=== PATIENT | female | born 1985 | race Caucasian/White ===

== ENCOUNTER 2019-09-27 10:43 | Inpatient (IN) | payer SELFPAY ==
[2019-09-27] MEDS ORDERED: Sodium Chloride 0.9% 10 ML Syringe FLUSH PRN (10:58)
[2019-09-27] MEDS: Lactated Ringers 1,000 ML IV SCH ×2 (11:05→11:20)
[2019-09-27] MEDS ORDERED: Bupivacaine 0.5% 30 ML SDV ONE (11:12)
[2019-09-27] MEDS ORDERED: Ondansetron 4 MG/2 ML SDV IVPUSH PRN (11:22)
[2019-09-27] MEDS ORDERED: Metoclopramide 10 MG/2 ML SDV IVPUSH ONE (11:22)
[2019-09-27] MEDS ORDERED: ceFAZolin 2 GM in Premix Bag 1 BAG IV ONE (11:22)
[2019-09-27] MEDS ORDERED: Citric Acid/Sodium Citrate Solution 30 ML Cup PO ONE (11:22)
[2019-09-27] MEDS ORDERED: Propofol 200 MG/20 ML SDV ONE (11:24)
[2019-09-27] MEDS ORDERED: Ketamine 500 mg/10 ML MDV ONE (11:25)
[2019-09-27] MEDS ORDERED: fentaNYL 100 MCG/2 ML SDV ONE (11:25)
[2019-09-27] MEDS ORDERED: ceFAZolin 1 GM Vial ONE (11:28)
[2019-09-27] MEDS ORDERED: Oxytocin 10 Units/1 ML SDV ONE ×2 (11:28→12:10)
[2019-09-27] MEDS ORDERED: Oxytocin/Lactated Ringers 20 UNIT/1,000 ML BAG IV SCH (11:30)
--- NOTE | 2019-09-27 11:34 | PCM.LDHP ---
L&D History of Present Illness - General Date of Service: 09/27/19 Admit Problem/Dx: Patient Status Order with Admit Dx/Problem 09/27/19 10:58 Patient Status [ADT] Routine Admission Diagnosis/Problem Admission Diagnosis/Problem Pain Source of Information: Patient History Limitations: Reports: No Limitations - History of Present Illness Introduction:: 33 y/o BIA by 14 week USG 11/27/2019. Presented to L&D c/o severe constant abdominal pain onset just after smoking methamphetamine. No vaginal bleeding. Two prior sections. Blood type A positive. Hgb now 7.8 and platelets [id number]. Bedside usg confirmed no heart tones. Abruptio placenta suspected by USG as well. Cervix closed, long, firm, posterior. BP 83/53 and repeat 80-90/50s. EGA 31w2d. IV started. H/O hypothyroidism on levothyroxine Allergy to sulfa Hgb in May 2019 10.6 platelets [id number]. H/O PTDS, depresion, asthma, anxiety and Met use H/O knee surgery and ankle Cholecystectomy CS x2 Improves with: Reports: None Worsens with: Reports: None Associated Symptoms: Reports: N - Related Data Allergies/Adverse Reactions: Allergies Allergy/AdvReac Type Severity Reaction Status Date / Time Sulfa (Sulfonamide Allergy Rash Verified 09/27/19 11:22 Antibiotics) H&P Review of Systems - Review of Systems: Review Of Systems: See Below General: Reports: Other (low BP) HEENT: Reports: No Symptoms Pulmonary: Reports: No Symptoms Cardiovascular: Reports: No Symptoms Gastrointestinal: Reports: Abdominal Pain (abruptio by usg and no heart tones on usg) Genitourinary: Reports: No Symptoms Musculoskeletal: Reports: No Symptoms Skin: Reports: No Symptoms Psychiatric: Reports: No Symptoms Neurological: Reports: No Symptoms Hematologic/Lymphatic: Reports: No Symptoms Immunologic: Reports: No Symptoms L&D Exam - Exam Exam: See Below - OB Specific Fundal Height In cm: 32 Movement: Not Appreciated Heart Tones: Not Hand Heart Tones per Min: 0 - Lin Score Lin Score Cervix Position: Posterior Lin Score Consistency: Firm Lin Score Effacement: 0-30% Lin Score Dilation: Closed Lin Score Infant's Station: -3 Lin Score Total: 0 - Exam General: Severe Distress, Lethargic HEENT: Conjunctiva Clear, Mucosa Moist & [place] Neck: Supple, Trachea Midline Lungs: Clear to Auscultation, Normal Respiratory Effort Cardiovascular: Regular Rate, Regular Rhythm GI/Abdominal Exam: Normal Bowel Sounds, Tender (consistant with abruptio placenta) Extremities: Normal Inspection, Normal Range of Motion, Non-Tender, No Pedal Edema, Normal Capillary Refill Skin: Dry, Intact, Cool, Moist - Problem List (1) 31 weeks gestation of SNOMED Code(s): 09735072 ICD Code: Z3A.31 - 31 WEEKS GESTATION OF Status: Acute Current Visit: Yes (2) Abruptio placenta SNOMED Code(s): 176044736 ICD Code: O45.90 - PREMATURE SEPARATION OF PLACENTA, UNSP, UNSP TRIMESTER Status: Acute Current Visit: Yes (3) Methamphetamine use SNOMED Code(s): 528547572 ICD Code: F15.10 - OTHER STIMULANT ABUSE, UNCOMPLICATED Status: Acute Current Visit: Yes (4) IUFD at 20 weeks or more of gestation SNOMED Code(s): 287134035, 807698121 ICD Code: O36.4XX0 - MATERNAL CARE FOR INTRAUTERINE , NOT APPLICABLE OR UNSP Status: Acute Current Visit: Yes Problem List Initiated/Reviewed/Updated: No Orders Last 24hrs: Active Orders 24 hr Category Date Time Status Patient Status [ADT] Routine ADT 09/27/19 10:58 Active Non Stress Test [RC] PER UNIT ROUTINE Care 09/27/19 10:58 Active Peripheral IV Care [RC] . DIRECTED Care 09/27/19 10:59 Active Vital Signs [RC] PER UNIT ROUTINE Care 09/27/19 10:58 Active OB Ltd 1 or More Fetus [US] Stat Exams 09/27/19 11:00 Ordered CBC WITH AUTO DIFF [HEME] Stat Lab 09/27/19 11:01 Ordered HEPATITIS B SURFACE AG [CHEM] Stat Lab 09/27/19 11:01 Ordered HIV RAPID SCREEN RLFX COMFIRM [CHEM] Urgent Lab 09/27/19 11:01 Ordered RAPID PLASMA REAGIN,RPR [CHEM] Stat Lab 09/27/19 11:01 Ordered RED BLOOD CELLS LP [BBK] Routine Lab 09/27/19 11:01 Ordered RUBELLA ANTIBODY IGG [CHEM] Stat Lab 09/27/19 11:01 Ordered TYPE AND SCREEN [BBK] Stat Lab 09/27/19 11:01 Ordered Sodium Chloride 0.9% [Saline Flush] Med 09/27/19 10:58 Active 10 ml FLUSH ASDIRECTED PRN OB Panel [OM.PC] Stat Oth 09/27/19 11:01 Ordered Peripheral IV Insertion Adult [OM.PC] Urgent Oth 09/27/19 10:58 Ordered Resuscitation Status Routine Resus Stat 09/27/19 10:58 Ordered Medication Orders Sodium Chloride (Saline Flush) 10 ml FLUSH ASDIRECTED PRN PRN Reason: Keep Vein Open Assessment/Plan Comment:: plan delivery
[2019-09-27] MEDS ORDERED: Succinylcholine/Sod PF 100 MG/5 ML SYRINGE IV ONE (11:40)
[2019-09-27] MEDS ORDERED: ePHEDrine Sulfate/0.9% NaCl/Pf 25 MG/5 ML SYRINGE IV ONE ×2 (11:53→11:56)
--- NOTE | 2019-09-27 11:55 | US ---
Limited obstetrical ultrasound: Multiple real-time images were obtained transabdominally. Comparison: No previous study. Mixed echogenic abnormality noted in a retroplacental location which is felt compatible with abruption with blood clot. Fetus is cephalic in presentation. KARLIE is 7. 1 2 centimeter. No heart activity seen within the fetus during 1 minute observation. Impression: 1. Findings compatible with placental abruption with retroplacental blood clot. 2. Cephalic presentation of fetus. No heart activity is seen within the fetus on 1 minute observation. Note: I have a note stating patient taken immediately to surgery per Dr. Melgar Diagnostic code #5 This report was dictated in MDT
[2019-09-27] MEDS ORDERED: Midazolam 1 MG/ML 2 ML SDV ONE (12:05)
[2019-09-27] MEDS ORDERED: Dexamethasone 4 MG/ML SDV ONE (12:07)
[2019-09-27] MEDS ORDERED: Ondansetron 4 MG/2 ML SDV ONE (12:07)
[2019-09-27] MEDS ORDERED: HYDROmorphone 0.5 MG/0.5 ML Syringe ONE ×2 (12:09→12:24)
[2019-09-27] MEDS ORDERED: Lactated Ringers 1,000 ML ONE ×2 (12:23)
[2019-09-27] MEDS ORDERED: Sodium Chloride 0.9% 1,000 ML ONE (12:23)
[2019-09-27] MEDS ORDERED: Methylergonovine 0.2 MG/1 ML Amp ONE (12:44)
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
[2019-09-27] MEDS ORDERED: HYDROmorphone 0.5 MG/0.5 ML Syringe IVPUSH PRN (12:50)
[2019-09-27] MEDS ORDERED: fentaNYL 100 MCG/2 ML SDV IVPUSH PRN (12:50)
--- NOTE | 2019-09-27 12:53 | PCM.PREANE ---
Preanesthetic Assessment - Procedure Proposed Procedure: Emergency C Section - Anesthesia/Transfusion/Family Hx Anesthesia History: Prior Anesthesia Without Reaction Family History of Anesthesia Reaction: No - Review of Systems General: Weakness Pulmonary: Other (Smoker 2 ppd) Cardiovascular: Lightheadedness Gastrointestinal: Abdominal Pain (Severe) Neurological: No Symptoms Other: Reports: None (Anemia, low iron, methamphetamine use this morning. ), Thyroid Problems - Physical Assessment NPO Status Date: 09/27/19 NPO Status Time: 00:30 Vital Signs: Last Vital Signs Temp 35.7 C L 09/27/19 12:49 Pulse 100 09/27/19 12:49 Resp 18 09/27/19 12:49 BP 111/69 09/27/19 12:49 Pulse Ox 100 09/27/19 12:49 ASA Class: 3E Mental Status: Alert & Oriented x3 Airway Class: Mallampati = 2 Dentition: Reports: Normal Dentition Thyro-Mental Finger Breadths: 3 Mouth Opening Finger Breadths: 3 ROM/Head Extension: Full Lungs: Clear to Auscultation, Normal Respiratory Effort Cardiovascular: Regular Rate, Regular Rhythm - Lab Values: Laboratory Last Values WBC 12.74 K/mm3 (3.98-10.04) H 09/27/19 11:20 RBC 2.48 M/mm3 (3.98-5.22) L 09/27/19 11:20 Hgb 7.8 gm/dl (11.2-15.7) L 09/27/19 11:20 Hct 24.3 % (34.1-44.9) L 09/27/19 11:20 MCV 98.0 fl (79.4-94.8) H 09/27/19 11:20 MCH 31.5 pg (25.6-32.2) 09/27/19 11:20 MCHC 32.1 g/dl (32.2-35.5) L 09/27/19 11:20 RDW Std Deviation 42.7 fL (36.4-46.3) 09/27/19 11:20 Plt Count 239 K/mm3 (182-369) 09/27/19 11:20 MPV 8.4 fl (9.4-12.3) L 09/27/19 11:20 Neut % (Auto) 75.3 % (34.0-71.1) H 09/27/19 11:20 Lymph % (Auto) 14.7 % (19.3-51.7) L 09/27/19 11:20 Ida % (Auto) 6.8 % (4.7-12.5) 09/27/19 11:20 Eos % (Auto) 2.2 (0.7-5.8) 09/27/19 11:20 Baso % (Auto) 0.2 % (0.1-1.2) 09/27/19 11:20 Neut # (Auto) 9.60 K/mm3 (1.56-6.13) H 09/27/19 11:20 Lymph # (Auto) 1.87 K/mm3 (1.18-3.74) 09/27/19 11:20 Ida # (Auto) 0.86 K/mm3 (0.24-0.36) H 09/27/19 11:20 Eos # (Auto) 0.28 K/mm3 (0.04-0.36) 09/27/19 11:20 Baso # (Auto) 0.03 K/mm3 (0.01-0.08) 09/27/19 11:20 Manual Slide Review Abnormal smear 09/27/19 11:20 Urine Color Yellow (Yellow) 09/27/19 11:29 Urine Appearance Slt cloudy (Clear) H 09/27/19 11:29 Urine pH 6.5 (5.0-8.0) 09/27/19 11:29 Ur Specific [place] 1.020 (1.005-1.030) 09/27/19 11:29 Urine Protein 1+ (Negative) H 09/27/19 11:29 Urine Glucose (UA) Negative (Negative) 09/27/19 11:29 Urine Ketones Negative (Negative) 09/27/19 11:29 Urine Occult Blood Trace-intact (Negative) H 09/27/19 11:29 Urine Nitrite Negative (Negative) 09/27/19 11:29 Urine Bilirubin Negative (Negative) 09/27/19 11:29 Urine Urobilinogen 0.2 (0.2-1.0) 09/27/19 11:29 Ur Leukocyte Esterase 1+ (Negative) H 09/27/19 11:29 Urine Opiates Screen Negative (SXHKEO=243) 09/27/19 11:29 Ur Buprenorphine Scrn Negative (CUTOFF=10) 09/27/19 11:29 Ur Oxycodone Screen Negative (AGM0LG=219) 09/27/19 11:29 Urine Methadone Screen Negative (JVPPGT=484) 09/27/19 11:29 Ur Propoxyphene Screen Negative (PNXMRJ=243) 09/27/19 11:29 Ur Barbiturates Screen Negative (JKPEVL=098) 09/27/19 11:29 Ur Tricyclics Screen Negative (GFBRYX=564) 09/27/19 11:29 Ur Phencyclidine Scrn Negative (CUTOFF=25) 09/27/19 11:29 Ur Amphetamine Screen Presumptive positive (XDFLKZ=847) H 09/27/19 11:29 U Methamphetamines Scrn Presumptive positive (UIBQHD=511) H 09/27/19 11:29 U Benzodiazepines Scrn Negative (MWPZSV=494) 09/27/19 11:29 U Cocaine Metab Screen Negative (HPHYBR=946) 09/27/19 11: U Marijuana (THC) Screen Negative (CUTOFF=50) 09/27/19 11:29 HIV-1 Ab Rapid Screen Negative (NEGATIVE) 09/27/19 11:20 Blood Type A POSITIVE 09/27/19 11:20 Gel Antibody Screen Negative 09/27/19 11:20 Crossmatch See Detail 09/27/19 11:20 - Allergies Allergies/Adverse Reactions: Allergies Allergy/AdvReac Type Severity Reaction Status Date / Time Sulfa (Sulfonamide Allergy Rash Verified 09/27/19 11:22 Antibiotics) - Blood Blood Available: Yes Product(s) Available: PRBC (Type and Cross ordered per Dr. Melgar) - Anesthesia Plan Pre-Op Medication Ordered: Other (Metoclopramide) - Acknowledgements Anesthesia Type Planned: General Anesthesia (RSI ) Pt an Appropriate Candidate for the Planned Anesthesia: Yes Alternatives and Risks of Anesthesia Discussed w Pt/Guardian: Yes Pt/Guardian Understands and Agrees with Anesthesia Plan: Yes PreAnesthesia Questionnaire - CURRENT (IN HOUSE) MEDS Current Meds: Current Medications Lactated Ringer's (Ringers, Lactated) 1,000 mls @ 125 mls/hr IV ASDIRECTED ARTHUR Oxytocin/Lactated Ringer's (Pitocin In Lr 20 Units/1,000 Ml) 20 unit in 1,000 mls @ 500 mls/hr IV TITRATE ARTHUR; Protocol Ondansetron HCl (Zofran) 4 mg IVPUSH Q4H PRN PRN Reason: Nausea/Vomiting Sodium Chloride (Saline Flush) 10 ml FLUSH ASDIRECTED PRN PRN Reason: Keep Vein Open Discontinued Medications Bupivacaine HCl (Marcaine 0.5%) Confirm Administered Dose 30 ml .ROUTE .[facility]-MED ONE Stop: 09/27/19 11:13 Cefazolin Sodium (Ancef) Confirm Administered Dose 2 gm .ROUTE .[facility]-MED ONE Stop: 09/27/19 11:29 Citric Acid/Sodium Citrate (Bicitra Solution) 30 ml PO ONETIME ONE Stop: 09/27/19 11:23 Dexamethasone (Dexamethasone) Confirm Administered Dose 4 mg .ROUTE .[facility] ONE Stop: 09/27/19 12:08 Ephedrine Sulfate (Ephedrine 25 Mg/5 Ml Syringe) Confirm Administered Dose 50 mg IV .ST-MED ONE Stop: 09/27/19 11:54 Ephedrine Sulfate (Ephedrine 25 Mg/5 Ml Syringe) Confirm Administered Dose 25 mg IV .[facility] ONE Stop: 09/27/19 11:57 Fentanyl (Sublimaze) Confirm Administered Dose 100 mcg .ROUTE .[facility]-MED ONE Stop: 09/27/19 11:26 Glycopyrrolate () Confirm Administered Dose 1 mg .ROUTE .[facility] ONE Stop: 09/27/19 11:56 Hydromorphone HCl (Dilaudid) Confirm Administered Dose 0.5 mg .ROUTE .[facility]-MED ONE Stop: 09/27/19 12:10 Hydromorphone HCl (Dilaudid) Confirm Administered Dose 0.5 mg .ROUTE .[facility]-MED ONE Stop: 09/27/19 12:25 Cefazolin Sodium/Dextrose 2 gm (/ Premix) 50 mls @ 100 mls/hr IV ONETIME ONE Stop: 09/27/19 11:51 Lactated Ringer's (Ringers, Lactated) Confirm Administered Dose 1,000 mls @ as directed .ROUTE .[facility]-MED ONE Stop: 09/27/19 12:24 Lactated Ringer's (Ringers, Lactated) Confirm Administered Dose 1,000 mls @ as directed .ROUTE .[facility]-MED ONE Stop: 09/27/19 12:24 Sodium Chloride (Normal Saline) Confirm Administered Dose 1,000 mls @ as directed .ROUTE .[facility]-MED ONE Stop: 09/27/19 12:24 Ketamine HCl (Ketalar) Confirm Administered Dose 500 mg .ROUTE .STK-MED ONE Stop: 09/27/19 11:26 Methylergonovine Maleate (Methergine) Confirm Administered Dose 0.2 mg .ROUTE .STK-MED ONE Stop: 09/27/19 12:45 Metoclopramide HCl (Reglan) 10 mg IVPUSH ONETIME ONE Stop: 09/27/19 11:23 Midazolam HCl (Versed 1 Mg/Ml) Confirm Administered Dose 2 mg .ROUTE .STK-MED ONE Stop: 09/27/19 12:06 Miscellaneous Medication (Phenylephrine 1 Mg/10 Ml-Ns) Confirm Administered Dose 1 mg IV .ST-MED ONE Stop: 09/27/19 11:58 Ondansetron HCl (Zofran) Confirm Administered Dose 4 mg .ROUTE .STK-MED ONE Stop: 09/27/19 12:08 Oxytocin (Pitocin) Confirm Administered Dose 20 unit .ROUTE .STK-MED ONE Stop: 09/27/19 11:29 Oxytocin (Pitocin) Confirm Administered Dose 20 unit .ROUTE .STK-MED ONE Stop: 09/27/19 12:11 Propofol (Diprivan 20 Ml) Confirm Administered Dose 200 mg .ROUTE .STK-MED ONE Stop: 09/27/19 11:25
--- NOTE | 2019-09-27 13:55 | PCM.POSTAN ---
POST ANESTHESIA ASSESSMENT - MENTAL STATUS Mental Status: Somnolent - VITAL SIGNS Vital Signs: Post operative Vitals 104/41, HR 100, SpO2 97% RR 16 T96.8F Last Vital Signs Temp 96.8 F L 09/27/19 13:44 Pulse 97 09/27/19 13:44 Resp 15 09/27/19 13:44 BP 121/88 09/27/19 13:44 Pulse Ox 95 09/27/19 13:44 - RESPIRATORY Respiratory Status: Respiratory Rate WNL, Airway Patent, O2 Saturation Stable, Supplemental Oxygen - CARDIOVASCULAR CV Status: Pulse Rate WNL, Blood Pressure Stable, Elevated Pulse Rate - GASTROINTESTINAL GI Status: No Symptoms - PAIN Pain Score: 0 - POST OP HYDRATION Hydration Status: Adequate & Stable
[2019-09-27] MEDS ORDERED: Acetaminophen 325 MG Tab PO PRN (14:44)
[2019-09-27] MEDS ORDERED: diphenhydrAMINE 50 MG/ML SDV IVPUSH PRN (14:44)
[2019-09-27] MEDS ORDERED: ePHEDrine 50 MG/ML SDV IVPUSH PRN (14:44)
[2019-09-27] MEDS ORDERED: Dextrose 5%-Lactated Ringers 1,000 ML IV SCH (14:44)
[2019-09-27] MEDS ORDERED: Acetaminophen/oxyCODONE 325-5 MG Tab PO PRN (14:44)
[2019-09-27] MEDS ORDERED: Ondansetron 4 MG Tab.DIS PO PRN (14:44)
[2019-09-27] MEDS ORDERED: Naloxone 0.4 MG/ML SDV IVPUSH PRN (14:44)
[2019-09-27] MEDS: Docusate Sodium 100 MG Cap PO PRN (15:13)
[2019-09-27] MEDS: Ibuprofen 600 MG Tab PO PRN ×2 (15:13→21:46)
[2019-09-27] MEDS: Simethicone 80 MG Tab.Chew PO SCH ×3 (15:13→20:30)
[2019-09-27] MEDS: Acetaminophen/oxyCODONE 325-5 MG Tab PO PRN ×3 (15:14→23:30)
--- NOTE | 2019-09-27 19:45 | PCM.SN.2 ---
- Free Text/Narrative Note: Patient is awake alert. Discussed findings at surgery with patient's and father of baby. No heavy vaginal bleeding no leg cramping. Chest is clear. See hemoglobin/hematocrit/platelets. Will withhold additional transfusion for now as patient is stable. Has been adequate. She understands she may be in the hospital until at least Friday morning.
[2019-09-27] MEDS ORDERED: Nicotine Polacrilex 2 MG Gum CHEW PRN (20:27)
[2019-09-28] MEDS ORDERED: Lactated Ringers 1,000 ML IV ONE (01:06)
[2019-09-28] MEDS: Acetaminophen/oxyCODONE 325-5 MG Tab PO PRN ×3 (05:31→16:41)
[2019-09-28] MEDS ORDERED: Sodium Chloride 0.9% 250 ML IV SCH (06:45)
--- NOTE | 2019-09-28 06:52 | PCM.SN.2 ---
- Free Text/Narrative Note: Image globe and 6.1 this morning. Patient has symptomatic unable to stand without feeling like she is going to pass out she is "too tired" to stand and get out of bed. Will transfuse with 2 units of packed red blood cells. Hemoglobin to be obtained 4 hours after last unit infused. An CBC in the morning. Incision normal uterus is involuting normally no leg cramping.
--- NOTE | 2019-09-28 09:00 | PCM48HPAN ---
Post Anesthesia Note - EVALUATION WITHIN 48HRS OF ANESTHETIC Vital Signs in Normal Range: Yes Patient Participated in Evaluation: Yes Respiratory Function Stable: Yes Airway Patent: Yes Cardiovascular Function Stable: Yes Hydration Status Stable: Yes Pain Control Satisfactory: Yes Nausea and Vomiting Control Satisfactory: Yes Mental Status Recovered: Yes Vital Signs: Last Vital Signs Temp 36.7 C 09/28/19 07:26 Pulse 63 09/28/19 07:49 Resp 16 09/28/19 07:26 BP 97/64 09/28/19 07:27 Pulse Ox 96 09/28/19 07:49
[2019-09-28] MEDS: Simethicone 80 MG Tab.Chew PO SCH ×4 (10:09→23:12)
[2019-09-28] MEDS: Ibuprofen 600 MG Tab PO PRN ×2 (10:09→20:41)
[2019-09-29] MEDS: Docusate Sodium 100 MG Cap PO PRN ×2 (05:53→08:14)
[2019-09-29] MEDS: Acetaminophen/oxyCODONE 325-5 MG Tab PO PRN ×2 (05:53→11:15)
[2019-09-29] MEDS: Simethicone 80 MG Tab.Chew PO SCH (08:14)
[2019-09-29] MEDS: Ibuprofen 600 MG Tab PO PRN (08:14)
--- NOTE | 2019-09-29 11:01 | PCM.DCSUM1 ---
Discharge Summary - Hospital Course Free Text/Narrative:: [facility] Post-Op/Procedure Note Patient Name: DANIELLE HARGROVE Date of : 87 Patient Status: Inpatient Attending Provider: Randal Melgar Date: 09/27/19 12:39 Initialization Date: 09/27/19 12:39 - General Post-Op/Procedure Note Date of Surgery/Procedure: 09/27/19 Operative Procedure(s): section repeat Pre Op Diagnosis: 1 weeks estimated gestational age, abruptio placentae, history of methamphetamine use, anemia, intrauterine demise, section x2 (previous) Post-Op Diagnosis: Same Anesthesia Technique: General ET Tube Primary Surgeon: Randal Melgar Secondary Surgeon: Misha Flores Anesthesia Provider: Cody Eaton Die Sinker: Justice Estrella (PAS) Die Sinker: Eveline Moses (2nd CASKET ASSEMBLER METAL) Reason Die Sinker Was Necessary: Since the procedure, retraction, cyst and surgery his comorbidity and mortality Role of Die Sinker: Since the procedure, retraction, cyst and surgery his comorbidity and mortality Fluid Replacement, Intraop: 4,000 Output, Urine Amount: 5 EBL in mLs: 2,200 (incl 1500 ml abruptio) Drain/Tube Comments:: romeo Complications: None Condition: Fair Free Text/Narrative:: Patient was transported to the operating room from labor and delivery. Laced under general anesthesia with regular intubation. Prepared and draped in a sterile fashion. CDs in place and functioning prior to surgery. Ancef 2 g given intravenously prior to surgery. Sees ultrasound had shown no heart tones thus intrauterine demise, abruptio placenta also demonstrated on ultrasound) timeout was performed confirming name date of and procedure section. Prepared and draped in a sterile fashion using iodine prep. Pfannenstiel incision was made and carried sharp section to and through the anterior fascia the peritoneal cavity was entered without difficulty bladder flap created pushed caudad in a low segment transverse section was performed (2 prior sections) amniotic fluid was blood-tinged with meconium and intrauterine demise my goal delivered at 1151 hrs. on Friday , 09/27/2019. Complete placental abruption cord blood was collected from three- vessel cord. Placenta was sent to pathology. Cavity inspected and sponge and needle pack instrument count correct x1 on closure of the uterus. Uterus was closed in 2 layers running locking suture of 0 Monocryl followed by a horizontal modified Lembert imbricating suture for the second layer. 2 additional interrupted [id number] sutures applied at the midline inferior portion for hemostasis. Seal added for hemostasis to this area at the middle of the incision. Ovaries appeared normal. No signs of Couvelaire uterus. Sponge and needle pack instrument and not correct x2 and closure the abdominal cavity. The abdominal cavity was closed with #1 PDS running suture. Skin was closed with 3-0 Monocryl subcuticular suture on a Jossue needle Dermabond Preneo applied. Clean from the vagina at the end of procedure. As of the amount of blood loss estimated at 2200 mL including the 1500 mL retroplacental blood clot estimation 2 units of O- blood were transfused and 1 additional unit of a positive matched blood ordered as well as 1 unit of fresh frozen plasma. CBC within be ordered 4 hours after the infusion of the fresh frozen plasma. And had some bogginess to the uterus in postanesthesia care unit and ordered Methergine 0.2 IM. demise weighed 2000 g 4 pounds 7 ounces as expected 0/0 [facility] DANIELLE HARGROVE Female : 1985 [facility]# [id number] 09/29/19 08:50 - Social Work Note by Beverly Lui Acct Num: [id number] : 1985 Patient Age: 33 Support visit; Mtg with pt and her significant other, support provided. Discussed treatment options at [facility] [place] or the human service center [facility] depending on where they will be at. Pt was open to considering this option. Pt is hoping to be able to return home today. Support provided. Initialized on 09/29/19 08:50 - END OF NOTE HPI Initial Comments: [facility] Post-Op/Procedure Note Patient Name: DANIELLE HARGROVE Date of : 87 Patient Status: Inpatient Attending Provider: Randal Melgar Date: 09/27/19 12:39 Initialization Date: 09/27/19 12:39 - General Post-Op/Procedure Note Date of Surgery/Procedure: 09/27/19 Operative Procedure(s): section repeat Pre Op Diagnosis: 1 weeks estimated gestational age, abruptio placentae, history of methamphetamine use, anemia, intrauterine demise, section x2 (previous) Post-Op Diagnosis: Same Anesthesia Technique: General ET Tube Primary Surgeon: Randal Melgar Secondary Surgeon: Misha Flores Anesthesia Provider: Cody Eaton Die Sinker: Justice Estrella (PAS) Die Sinker: Eveline Moses (2nd CASKET ASSEMBLER MET[employer]) Reason Die Sinker Was Necessary: Since the procedure, retraction, cyst and surgery his comorbidity and mortality Role of Die Sinker: Since the procedure, retraction, cyst and surgery his comorbidity and mortality Fluid Replacement, Intraop: 4,000 Output, Urine Amount: 5 EBL in mLs: 2,200 (incl 1500 ml abruptio) Drain/Tube Comments:: romeo Complications: None Condition: Fair Free Text/Narrative:: Patient was transported to the operating room from labor and delivery. Laced under general anesthesia with regular intubation. Prepared and draped in a sterile fashion. CDs in place and functioning prior to surgery. Ancef 2 g given intravenously prior to surgery. Sees ultrasound had shown no heart tones thus intrauterine demise, abruptio placenta also demonstrated on ultrasound) timeout was performed confirming name date of and procedure section. Prepared and draped in a sterile fashion using iodine prep. Pfannenstiel incision was made and carried sharp section to and through the anterior fascia the peritoneal cavity was entered without difficulty bladder flap created pushed caudad in a low segment transverse section was performed (2 prior sections) amniotic fluid was blood-tinged with meconium and intrauterine demise my goal delivered at 1151 hrs. on Friday , 09/27/2019. Complete placental abruption cord blood was collected from three- vessel cord. Placenta was sent to pathology. Cavity inspected and sponge and needle pack instrument count correct x1 on closure of the uterus. Uterus was closed in 2 layers running locking suture of 0 Monocryl followed by a horizontal modified Lembert imbricating suture for the second layer. 2 additional interrupted [id number] sutures applied at the midline inferior portion for hemostasis. Seal added for hemostasis to this area at the middle of the incision. Ovaries appeared normal. No signs of Couvelaire uterus. Sponge and needle pack instrument and not correct x2 and closure the abdominal cavity. The abdominal cavity was closed with #1 PDS running suture. Skin was closed with 3-0 Monocryl subcuticular suture on a Jossue needle Dermabond Preneo applied. Clean from the vagina at the end of procedure. As of the amount of blood loss estimated at 2200 mL including the 1500 mL retroplacental blood clot estimation 2 units of O- blood were transfused and 1 additional unit of a positive matched blood ordered as well as 1 unit of fresh frozen plasma. CBC within be ordered 4 hours after the infusion of the fresh frozen plasma. And had some bogginess to the uterus in postanesthesia care unit and ordered Methergine 0.2 IM. demise weighed 2000 g 4 pounds 7 ounces as expected 0/0 [facility] DANIELLE HARGROVE Female : 1985 [facility]# [id number] 09/29/19 08:50 - Social Work Note by Beverly Lui Acct Num: [id number] : 1985 Patient Age: 33 Support visit; Mtg with pt and her significant other, support provided. Discussed treatment options at [facility] [place] or the human service center in [place] depending on where they will be at. Pt was open to considering this option. Pt is hoping to be able to return home today. Support provided. Initialized on 09/29/19 08:50 - END OF NOTE Brief History: [facility] . Post-Op/Procedure Note. Patient Name: DANIELLE HARGROVEical Record Number: [id number]. Date of : 87Patient Status: Inpatient. Attending Provider: Randal Melgar Number: [id number]. Date: 09/27/19 12:39Initialization Date: 09/12 12:39. - General Post-Op/Procedure Note. Date of Surgery/Procedure: 09/12. Operative Procedure(s): section repeat. Pre Op Diagnosis: 1 weeks estimated gestational age, abruptio placentae, history of methamphetamine use, anemia, intrauterine demise, section x2 (previous). Post- Op Diagnosis: Same. Anesthesia Technique: General ET Tube. Primary Surgeon: Randal Melgar. Secondary Surgeon: Misha Flores. Anesthesia Provider: Cody Eaton. Die Sinker: Justice Estrella (PAS). Die Sinker: Eveline Moses (2nd CASKET ASSEMBLER METAL). Reason Die Sinker Was Necessary: Since the procedure, retraction, cyst and surgery his comorbidity and mortality. Role of Die Sinker: Since the procedure, retraction, cyst and surgery his comorbidity and mortality. Fluid Replacement, Intraop: 4,000. Output, Urine Amount: 5. EBL in mLs: 2,200 (incl 1500 ml abruptio). Drain/Tube Comments:: romeo. Complications: None. Condition: Fair. Free Text/Narrative:: Patient was transported to the operating room from labor and delivery. Laced under general anesthesia with regular intubation. Prepared and draped in a sterile fashion. CDs in place and functioning prior to surgery. Ancef 2 g given intravenously prior to surgery. Sees ultrasound had shown no heart tones thus intrauterine demise, abruptio placenta also demonstrated on ultrasound) timeout was performed confirming name date of and procedure section. Prepared and draped in a sterile fashion using iodine prep. Pfannenstiel incision was made and carried sharp section to and through the anterior fascia the peritoneal cavity was entered without difficulty bladder flap created pushed caudad in a low segment transverse section was performed (2 prior sections) amniotic fluid was blood-tinged with meconium and intrauterine demise my goal delivered at 1151 hrs. on Friday , 09/27/2019. Complete placental abruption cord blood was collected from three- vessel cord. Placenta was sent to pathology. Cavity inspected and sponge and needle pack instrument count correct x1 on closure of the uterus. Uterus was closed in 2 layers running locking suture of 0 Monocryl followed by a horizontal modified Lembert imbricating suture for the second layer. 2 additional interrupted [id number] sutures applied at the midline inferior portion for hemostasis. Seal added for hemostasis to this area at the middle of the incision. Ovaries appeared normal. No signs of Couvelaire uterus. Sponge and needle pack instrument and not correct x2 and closure the abdominal cavity. The abdominal cavity was closed with #1 PDS running suture. Skin was closed with 3-0 Monocryl subcuticular suture on a Jossue needle Dermabond Preneo applied. Clean from the vagina at the end of procedure. As of the amount of blood loss estimated at 2200 mL including the 1500 mL retroplacental blood clot estimation 2 units of O- blood were transfused and 1 additional unit of a positive matched blood ordered as well as 1 unit of fresh frozen plasma. CBC within be ordered 4 hours after the infusion of the fresh frozen plasma. And had some bogginess to the uterus in postanesthesia care unit and ordered Methergine 0.2 IM. demise weighed 2000 g 4 pounds 7 ounces as expected 0/0. [facility] . DANIELLE HARGROVE [facility] : 1985 [id number]. 09/29/19 08:50 - Social Work Note by Beverly Lui Acct Num: [id number] : 1985 Patient Age: 33. Support visit;. Mtg with pt and her significant other, support provided. Discussed treatment options at [facility] [place] or the human service center in [place] depending on where they will be at. Pt was open to considering this option. Pt is hoping to be able to return home today. Support provided. Initialized on 09/29/19 08:50 - END OF NOTE Diagnosis: Stroke: No - Discharge Data Discharge Date: 09/29/19 Discharge Disposition: Home, Self-Care 01 Condition: Fair - Referral to Home Health Primary Care Physician: PCP None - Discharge Diagnosis/Problem(s) (1) 31 weeks gestation of SNOMED Code(s): 62313527 ICD Code: Z3A.31 - 31 WEEKS GESTATION OF Status: Acute Current Visit: Yes (2) Abruptio placenta SNOMED Code(s): 787134554 ICD Code: O45.90 - PREMATURE SEPARATION OF PLACENTA, UNSP, UNSP TRIMESTER Status: Acute Current Visit: Yes Qualifiers: Trimester: third trimester Qualified Code(s): O45.93 - Premature separation of placenta, unspecified, third trimester (3) Methamphetamine use SNOMED Code(s): 782215546 ICD Code: F15.10 - OTHER STIMULANT ABUSE, UNCOMPLICATED Status: Acute Current Visit: Yes (4) IUFD at 20 weeks or more of gestation SNOMED Code(s): 529268434, 461617450 ICD Code: O36.4XX0 - MATERNAL CARE FOR INTRAUTERINE , NOT APPLICABLE OR UNSP Status: Acute Current Visit: Yes - Patient Summary/Data Operative Procedure(s) Performed: section repeat Complications: Social service consult Consults: Consultations 09/28/19 08:04 Consult to Case Management/Hand Patcher [CONS] Routine Hospital Course: uneventful - Patient Instructions Diet: Usual Diet as Tolerated Driving: Do Not Drive (x2 weeks) Showering/Bathing: May Shower, No Tub Bathing/Swimming (x6 weeks) Wound/Incision Care: Keep Operative Site/Wound Site Clean and Dry Notify Provider of: Fever, Increased Pain, Swelling and Redness, Drainage, Nausea and/or Vomiting - Discharge Plan Prescriptions/Med Rec: Acetaminophen/oxyCODONE [Percocet 325-5 MG] 1 tab PO Q6HR PRN #8 tablet PRN Reason: Pain (Severe 7-10) Ascorbic Acid [Vitamin C] 250 mg PO TID #90 tab.chew Sertraline [Zoloft] 50 mg PO BEDTIME #15 tab Home Medications: Home Meds Ferrous Sulfate [Iron] 325 mg PO DAILY 09/27/19 [History] Levothyroxine [Synthroid] 100 mcg PO ACBREAKFAST 09/27/19 [History] No122/Iron/Folic Acid [ Multi Tablet] 1 each PO DAILY 09/27/19 [History] Acetaminophen [Tylenol] 650 mg PO Q6H PRN tablet 09/29/19 [Rx] Acetaminophen/oxyCODONE [Percocet 325-5 MG] 1 tab PO Q6HR PRN #8 tablet [Rx] Ascorbic Acid [Vitamin C] 250 mg PO TID #90 tab.chew 09/29/19 [Rx] Docusate Sodium [Colace] 100 mg PO Q12H PRN cap 09/29/19 [Rx] Ibuprofen [Motrin] 600 mg PO Q6H PRN tablet 09/29/19 [Rx] Levothyroxine 175 mcg PO ACBREAKFAST tablet 09/29/19 [Rx] Nicotine Polacrilex [Nicorelief] 4 mg CHEW Q2H PRN gum 09/29/19 [Rx] Sertraline [Zoloft] 50 mg PO BEDTIME #15 tab 09/29/19 [Rx] Simethicone 80 mg PO PCBED tab.chew 09/29/19 [Rx] Patient Handouts: Steps to Quit Smoking Referrals: Randal Melgar MD [Physician] - (See me if here in two weeks or in [place] see physician there to remove dressing (Dermabond Preneo)) - Discharge Summary/Plan Comment DC Time >30 min.: No - Patient Data Vitals - Most Recent: Last Vital Signs Temp 98.1 F 09/29/19 03:53 Pulse 64 09/29/19 08:09 Resp 14 09/29/19 08:09 BP 126/83 09/29/19 08:09 Pulse Ox 100 09/29/19 08:09 Weight - Most Recent: 180 lb I&O - Last 24 hours: Intake & Output 09/28/19 09/29/19 09/29/19 22:59 06:59 14:59 Intake Total 420 Output Total 1600 Balance -1180 Lab Results - Last 24 hrs: Laboratory Results - last 24 hr 09/27/19 09/27/19 09/28/19 Range/Units 11:20 11:20 16:30 WBC 12.57 H (3.98-10.04) K/mm3 RBC 2.94 L (3.98-5.22) M/mm3 Hgb 8.5 L D (11.2-15.7) gm/dl Hct 25.3 L (34.1-44.9) % MCV 86.1 D (79.4-94.8) fl MCH 28.9 (25.6-32.2) pg MCHC 33.6 (32.2-35.5) g/dl RDW Std Deviation 52.1 H (36.4-46.3) fL Plt Count 155 L (182-369) K/mm3 MPV 9.3 L (9.4-12.3) fl Neut % (Auto) (34.0-71.1) % Lymph % (Auto) (19.3-51.7) % [place] % (Auto) (4.7-12.5) % Eos % (Auto) (0.7-5.8) Baso % (Auto) (0.1-1.2) % Neut # (Auto) (1.56-6.13) K/mm3 Lymph # (Auto) (1.18-3.74) K/mm3 [place] # (Auto) (0.24-0.36) K/mm3 Eos # (Auto) (0.04-0.36) K/mm3 Baso # (Auto) (0.01-0.08) K/mm3 Manual Slide Review Hep Bs Antigen Nonreactive (NONREACTIVE) Rubella IgG Antibody Reactive (pos) (REACTIVE) Crossmatch See Detail 09/29/19 Range/Units 05:37 WBC 11.01 H (3.98-10.04) K/mm3 RBC 2.59 L (3.98-5.22) M/mm3 Hgb 7.4 L (11.2-15.7) gm/dl Hct 22.6 L (34.1-44.9) % MCV 87.3 (79.4-94.8) fl MCH 28.6 (25.6-32.2) pg MCHC 32.7 (32.2-35.5) g/dl RDW Std Deviation 56.2 H (36.4-46.3) fL Plt Count 173 L (182-369) K/mm3 MPV 9.7 (9.4-12.3) fl Neut % (Auto) 68.8 (34.0-71.1) % Lymph % (Auto) 19.8 (19.3-51.7) % [place] % (Auto) 7.4 (4.7-12.5) % Eos % (Auto) 2.8 (0.7-5.8) Baso % (Auto) 0.3 (0.1-1.2) % Neut # (Auto) 7.58 H (1.56-6.13) K/mm3 Lymph # (Auto) 2.18 (1.18-3.74) K/mm3 [place] # (Auto) 0.81 H (0.24-0.36) K/mm3 Eos # (Auto) 0.31 (0.04-0.36) K/mm3 Baso # (Auto) 0.03 (0.01-0.08) K/mm3 Manual Slide Review Abnormal smear Hep Bs Antigen (NONREACTIVE) Rubella IgG Antibody (REACTIVE) Crossmatch Med Orders - Current: Current Medications Acetaminophen (Tylenol) 650 mg PO Q4H PRN PRN Reason: mild pain or fever Diphenhydramine HCl (Benadryl) 25 mg IVPUSH Q6H PRN PRN Reason: Itching or Nausea Docusate Sodium (Colace) 100 mg PO Q12H PRN PRN Reason: Constipation Last Admin: 09/29/19 08:14 Dose: 100 mg Ephedrine Sulfate (Ephedrine Sulfate) 5 mg IVPUSH SEECOMMENT PRN PRN Reason: Other Sodium Chloride (Normal Saline) 250 mls @ 50 mls/hr IV ASDIRECTED [facility] Ibuprofen (Motrin) 600 mg PO Q6H PRN PRN Reason: mild pain or fever Last Admin: 09/29/19 08:14 Dose: 600 mg Levothyroxine Sodium (Levothyroxine) 175 mcg PO ACBREAKFAST [facility] Last Admin: 09/29/19 06:29 Dose: 175 mcg Naloxone HCl (Narcan) 0.1 mg IVPUSH SEECOMMENT PRN PRN Reason: Respiratory Depression Nicotine Polacrilex (Nicorelief) 4 mg CHEW Q2H PRN PRN Reason: Other Last Admin: 09/27/19 21:14 Dose: 4 mg Ondansetron HCl (Zofran Odt) 4 mg PO Q4H PRN PRN Reason: Nausea/Vomiting Oxycodone/Acetaminophen (Percocet 325-5 Mg) 1 tab PO Q4H PRN PRN Reason: Pain (moderate 4-6) Last Admin: 09/28/19 23:13 Dose: 1 tab Oxycodone/Acetaminophen (Percocet 325-5 Mg) 2 tab PO Q4H PRN PRN Reason: Pain (severe 7-10) Last Admin: 09/29/19 05:53 Dose: 2 tab Simethicone (Simethicone) 80 mg PO PCBED [facility] Last Admin: 09/29/19 08:14 Dose: 80 mg Discontinued Medications Bupivacaine HCl (Marcaine 0.5%) Confirm Administered Dose 30 ml .ROUTE .STK-MED ONE Stop: 09/27/19 11:13 Last Admin: 09/27/19 11:49 Dose: 20 ml Cefazolin Sodium (Ancef) Confirm Administered Dose 2 gm .ROUTE .STK-MED ONE Stop: 09/27/19 11:29 Citric Acid/Sodium Citrate (Bicitra Solution) 30 ml PO ONETIME ONE Stop: 09/27/19 11:23 Dexamethasone (Dexamethasone) Confirm Administered Dose 4 mg .ROUTE .STK-MED ONE Stop: 09/27/19 12:08 Ephedrine Sulfate (Ephedrine 25 Mg/5 Ml Syringe) Confirm Administered Dose 50 mg IV .STK-MED ONE Stop: 09/27/19 11:54 Ephedrine Sulfate (Ephedrine 25 Mg/5 Ml Syringe) Confirm Administered Dose 25 mg IV .ST-MED ONE Stop: 09/27/19 11:57 Fentanyl (Sublimaze) Confirm Administered Dose 100 mcg .ROUTE .STK-MED ONE Stop: 09/27/19 11:26 Fentanyl (Sublimaze) 100 mcg IVPUSH Q5M PRN PRN Reason: Pain Last Admin: 09/27/19 14:04 Dose: 100 mcg Glycopyrrolate () Confirm Administered Dose 1 mg .ROUTE .[facility]-MED ONE Stop: 09/27/19 11:56 Hydromorphone HCl (Dilaudid) Confirm Administered Dose 0.5 mg .ROUTE .ST-MED ONE Stop: 09/27/19 12:10 Hydromorphone HCl (Dilaudid) Confirm Administered Dose 0.5 mg .ROUTE .ST-MED ONE Stop: 09/27/19 12:25 Hydromorphone HCl (Dilaudid) 0.5 mg IVPUSH Q10M PRN PRN Reason: Pain (severe 7-10) Cefazolin Sodium/Dextrose 2 gm (/ Premix) 50 mls @ 100 mls/hr IV ONETIME ONE Stop: 09/27/19 11:51 Lactated Ringer's (Ringers, Lactated) 1,000 mls @ 125 mls/hr IV ASDIRECTED ARTHUR Last Admin: 09/27/19 11:20 Dose: 999 mls/hr Oxytocin/Lactated Ringer's (Pitocin In Lr 20 Units/1,000 Ml) 20 unit in 1,000 mls @ 500 mls/hr IV TITRATE ARTHUR; Protocol Lactated Ringer's (Ringers, Lactated) Confirm Administered Dose 1,000 mls @ as directed .ROUTE .ST-MED ONE Stop: 09/27/19 12:24 Lactated Ringer's (Ringers, Lactated) Confirm Administered Dose 1,000 mls @ as directed .ROUTE .STK-MED ONE Stop: 09/27/19 12:24 Sodium Chloride (Normal Saline) Confirm Administered Dose 1,000 mls @ as directed .ROUTE .ST-MED ONE Stop: 09/27/19 12:24 Dextrose/Lactated Ringer's (Dextrose 5%-Lactated Ringers) 1,000 mls @ 125 mls/ hr IV ASDIRECTED ARTHUR Stop: 09/27/19 22:43 Last Admin: 09/27/19 15:56 Dose: 125 mls/hr Lactated Ringer's (Ringers, Lactated) 1,000 mls @ 999 mls/hr IV .BOLUS ONE Stop: 09/28/19 02:06 Last Admin: 09/28/19 04:30 Dose: 999 mls/hr Ketamine HCl (Ketalar) Confirm Administered Dose 500 mg .ROUTE .ST-MED ONE Stop: 09/27/19 11:26 Methylergonovine Maleate (Methergine) Confirm Administered Dose 0.2 mg .ROUTE .ST-MED ONE Stop: 09/27/19 12:45 Last Admin: 09/27/19 12:46 Dose: 0.2 mg Metoclopramide HCl (Reglan) 10 mg IVPUSH ONETIME ONE Stop: 09/27/19 11:23 Last Admin: 09/27/19 11:25 Dose: 10 mg Midazolam HCl (Versed 1 Mg/Ml) Confirm Administered Dose 2 mg .ROUTE .ST-MED ONE Stop: 09/27/19 12:06 Miscellaneous Medication (Phenylephrine 1 Mg/10 Ml-Ns) Confirm Administered Dose 1 mg IV .ST-MED ONE Stop: 09/27/19 11:58 Ondansetron HCl (Zofran) 4 mg IVPUSH Q4H PRN PRN Reason: Nausea/Vomiting Ondansetron HCl (Zofran) Confirm Administered Dose 4 mg .ROUTE .ST-MED ONE Stop: 09/27/19 12:08 Oxytocin (Pitocin) Confirm Administered Dose 20 unit .ROUTE .STK-MED ONE Stop: 09/27/19 11:29 Oxytocin (Pitocin) Confirm Administered Dose 20 unit .ROUTE .ST-MED ONE Stop: 05/04/20 12:11 Propofol (Diprivan 20 Ml) Confirm Administered Dose 200 mg .ROUTE .STK-MED ONE Stop: 09/27/19 11:25 Sodium Chloride (Saline Flush) 10 ml FLUSH ASDIRECTED PRN PRN Reason: Keep Vein Open
== END 2019-09-29 12:11 | disposition home or self-care (01) | DRG 787 ==
LOC: JD.OBCHECK 10:43 → JD.OB 10:45 → JD.OBCHECK 11:21 → JD.OB 11:22 → UNDOADMIN 11:22 → JD.OB 09-28 12:47 → UNDODISIN 09-29 12:00
PROVIDERS: ADMIT Obstetrics & Gynecology; ATTEND Obstetrics & Gynecology
PROC: 10D00Z1 Extraction of Products of Conception, Low, Open Approach (ICD-10-PCS; principal; 2019-09-27)
PROC: 30233N1 Transfusion of Nonautologous Red Blood Cells into Peripheral Vein, Percutaneous Approach (ICD-10-PCS; 2019-09-28)
DX: O45.93 Premature separation of placenta, unspecified, third trimester (principal); O36.4XX0 Maternal care for intrauterine death, not applicable or unspecified; O99.324 Drug use complicating childbirth; F15.10 Other stimulant abuse, uncomplicated; O99.02 Anemia complicating childbirth; D64.9 Anemia, unspecified; Z3A.31 31 weeks gestation of pregnancy; Z37.1 Single stillbirth
CPT/HCPCS: 01961; 36415; 36430; 51702; 76815; 76815-26; 80306; 81003; 85025; 85027; 86592; 86762; 86850; 86900; 86901; 86922; 87340; A9270-GY; G0433; G0480; J0171; J0330; J0690; J1100; J1170; J2210; J2250; J2370; J2405; J2590; J2704; J2765; J3010; J3490; J7030; J7120; J7121; P9016; P9017